=== PATIENT | female | born 1975 | race African-American/Black ===

== ENCOUNTER 2017-09-02 22:35 | Emergency (ER) | payer OTHER | END 2017-09-03 01:43 | disposition home or self-care (01) | LOC: ER 22:35 | DX: S00.83XA Contusion of other part of head, initial encounter (principal); M79.1 Myalgia; I10 Essential (primary) hypertension; Z98.51 Tubal ligation status; Z88.1 Allergy status to other antibiotic agents; Z88.2 Allergy status to sulfonamides; Z88.0 Allergy status to penicillin; V43.52XA Car driver injured in collision with other type car in traffic accident, initial encounter; Y93.I9 Activity, other involving external motion; Y92.410 Unspecified street and highway as the place of occurrence of the external cause; Y99.8 Other external cause status | CPT/HCPCS: 70450; 99284-25 ==

== ENCOUNTER → 2018-04-24 | Outpatient (CLI) | payer BC ==
[2017-09-02 22:45] VITALS: BP 129/85
[~2018-04-24] MED LIST: ONDA4TAB7 PO
--- NOTE | 2018-04-25 15:54 | RAD ---
Nonvascular right lower extremity ultrasound History: Masses of right lower extremity Comparison: None. Findings: Multiple grayscale and color images of the right posterior lower thigh region and right upper calf region are submitted at sites of palpable concern. Both areas correspond with thrombosed superficial veins. There is also nonspecific edema also in these regions. Impression: 1. Both areas of palpable concern correspond with superficial thrombophlebitis. Electronically signed by: Jad Dunaway MD (04/25/2018 3:51 PM) [id number]
== END | disposition home or self-care (01) ==
LOC: RAD 16:06
PROVIDERS: ATTEND Nurse Practitioner Gerontology
DX: I80.01 Phlebitis and thrombophlebitis of superficial vessels of right lower extremity (principal); I10 Essential (primary) hypertension; R60.0 Localized edema; Z88.0 Allergy status to penicillin; Z88.1 Allergy status to other antibiotic agents; Z88.2 Allergy status to sulfonamides; Z88.8 Allergy status to other drugs, medicaments and biological substances
CPT/HCPCS: 76881

== ENCOUNTER 2018-09-03 13:28 | Emergency (ER) | payer BC ==
[~2018-09-03] VITALS: Ht 177.8 cm; Wt 176.9 kg
[2018-09-03 14:04] VITALS: BP 152/81
--- NOTE | 2018-09-03 14:23 | PHYS DOC ---
Past Medical History Past Medical History: Hypertension Past Surgical History: Tubal ligation, Other Additional Past Surgical Histo: R foot Alcohol Use: None Drug Use: None Adult General Chief Complaint Chief Complaint: Neck Pain HPI HPI Patient is a 43-year-old female who presents with complaint of three-day history of right-sided neck and upper back pain. Patient states that she just woke up with the pain 3 days ago. She denies any recent injuries and has not been lifting anything heavy. Patient states that pain is worsened when she moves her neck. She rates pain as being moderate and states that she has no alleviating factors. Review of Systems Review of Systems Constitutional: Denies fever or chills [] Respiratory: Denies cough or shortness of breath [] Cardiovascular: No additional information not addressed in HPI [] Musculoskeletal: [place] of right-sided neck and upper back pain [] Integument: Denies rash or skin lesions [] Neurologic: Denies headache, focal weakness or sensory changes [] Current Medications Current Medications Current Medications Medications (Trade) Dose Ordered Sig/[facility] Start Time Stop Time Status Last Admin Dose Admin Dexamethasone Sodium Phosphate (Decadron) 10 mg 1X ONCE 09/03/18 14:30 09/03/18 14:31 DC 09/03/18 14:39 10 MG Ketorolac Tromethamine (Toradol Im) 60 mg 1X ONCE 09/03/18 14:30 09/03/18 14:31 DC 09/03/18 14:39 60 MG Allergies Allergies Allergies Coded Allergies Type Severity Reaction Last Updated Verified Penicillins Allergy Unknown 04/16/15 No sulfamethoxazole Allergy Unknown 04/16/15 No trimethoprim Allergy Unknown 04/16/15 No Physical Exam Physical Exam Constitutional: Well developed, well nourished, no acute distress, non-toxic appearance. [] Neck: Decreased range of motion, with tenderness to palpation in the right sided suboccipital and cervical strap musculature. There is palpable spasm noted within these muscles. [] Cardiovascular: Regular rate and rhythm, no murmur [] Lungs & Thorax: Bilateral breath sounds clear to auscultation [] Skin: Warm, dry, no erythema, no rash. [] Back: There is tenderness to palpation with palpable spasm noted in the right sided trapezius and levator scapula. [] Neurologic: Alert and oriented X 3, no focal deficits noted. [] Current Patient Data Vital Signs Vital Signs Date Time Temp Pulse Resp B/P (MAP) Pulse Ox O2 Delivery O2 Flow Rate FiO2 09/03/18 14:04 97.8 82 18 152/81 (104) 98 Room Air 97.8 EKG EKG [] Radiology/Procedures Radiology/Procedures [] Course & Med Decision Making Course & Med Decision Making Pertinent Labs and Imaging studies reviewed. (See chart for details) [] Dragon Disclaimer Dragon Disclaimer This electronic medical record was generated, in whole or in part, using a voice recognition dictation system. Departure Departure Impression: Primary Impression: Torticollis, acute Disposition: HOME, SELF-CARE Condition: STABLE Referrals: CARMELA STEVE APRN (PCP) Patient Instructions: Torticollis, Acute Scripts Orphenadrine Citrate (ORPHENADRINE CITRATE) 100 Mg Tablet.er 1 TAB PO BID PRN for MUSCLE SPASMS, #14 TAB Prov: GILMAR TORRES Jr. DO 09/03/18 Diclofenac Sodium (DICLOFENAC SODIUM) 50 Mg Tablet.dr 1 TAB PO BID PRN for MUSCLE PAIN, #20 TAB Prov: GILMAR TORRES Jr. DO 09/03/18 Tramadol Hcl (TRAMADOL HCL) 50 Mg Tablet 50 MG PO Q6HRS PRN for PAIN for 3 Days, #12 TAB Prov: GILMAR TORRES Jr. DO 09/03/18 GILMAR TORRES Jr. DO Sep 03, 2018 14:23
[2018-09-03] MEDS ORDERED: DEXAMETHASONE SOD PHOS 20 MG/5 ML VIAL. IM ONE (14:30)
[2018-09-03] MEDS ORDERED: KETOROLAC 60 MG/2 ML VIAL. IM ONE (14:30)
[2018-09-03] MEDS ORDERED: TRAM50TA PO (14:48)
[2018-09-03] MEDS ORDERED: DICL50TA4 PO (14:48)
[2018-09-03] MEDS ORDERED: ORPH100T PO (14:48)
== END 2018-09-03 14:54 | disposition home or self-care (01) ==
LOC: ER 13:28
DX: M43.6 Torticollis (principal); M54.6 Pain in thoracic spine; I10 Essential (primary) hypertension; Z98.51 Tubal ligation status; Z88.0 Allergy status to penicillin; Z88.2 Allergy status to sulfonamides; Z88.1 Allergy status to other antibiotic agents
CPT/HCPCS: 96372; 99283; J1100; J1885

== ENCOUNTER 2018-10-23 15:22 | Emergency (ER) | payer BC ==
[~2018-10-23] VITALS: Ht 177.8 cm; Wt 181.4 kg
[~2018-10-23 15:22] MED LIST changes: +DICL50TA4 PO; +ORPH100T PO; +TRAM50TA PO
[2018-10-23] MEDS ORDERED: KETOROLAC 30 MG/ML VIAL. IV ONE (16:00)
[2018-10-23 16:33] LABS: BASO % 1 % (0-3); EOS # 0.2 x10^3/uL (0.0-0.7); EOS % 4 % (0-3); HEMOGLOBIN 11.4 g/dL (12.0-15.5); LYMPH # 0.9 x10^3/uL (1.0-4.8); LYMPH % 18 % (24-48); MEAN CORPUSCULAR HEMOGLOBIN 23 pg (25-35); MEAN CORPUSCULAR HGB CONC 32 g/dL (31-37); MEAN CORPUSCULAR VOLUME 73 fL (79-100); MONO # 0.7 x10^3/uL (0.0-1.1); MONO % 15 % (0-9); NEUT # 3.1 x10^3uL (1.8-7.7); NEUT % 63 % (31-73); PLATELET COUNT 327 x10^3/uL (140-400); RED BLOOD COUNT 4.94 x10^6/uL (3.50-5.40); RED CELL DISTRIBUTION WIDTH 17.4 % (11.5-14.5); WHITE BLOOD COUNT 4.9 x10^3/uL (4.0-11.0)
[2018-10-23 16:41] LABS: CALCIUM 9.1 mg/dL (8.5-10.1); CREATININE 0.9 mg/dL (0.6-1.0); GFR 83.1; POTASSIUM 4.2 mmol/L (3.5-5.1)
--- NOTE | 2018-10-23 16:44 | RAD ---
EXAM: CHEST 1 VIEW History: Chest pain, cough COMPARISON: None available. TECHNIQUE: Single portable radiograph of the chest FINDINGS: Mild cardiomegaly. There is mild prominent appearing bilateral interstitial lung markings. The costophrenic sulci are clear and well demarcated. IMPRESSION: Mild prominent bilateral interstitial lung markings likely mild congestive changes. Electronically signed by: Ceferino He MD (10/23/2018 4:42 PM) [id number]
[2018-10-23 16:47] LABS: ALBUMIN 3.6 g/dL (3.4-5.0); ALBUMIN/GLOBULIN RATIO 0.9 (1.0-1.7); TOTAL BILIRUBIN 0.4 mg/dL (0.2-1.0); TOTAL PROTEIN 7.8 g/dL (6.4-8.2)
[2018-10-23 17:00] VITALS: BP 127/77
[2018-10-23] MEDS ORDERED: LOSA25TA54 PO (17:05)
[2018-10-23] MEDS ORDERED: CYCL5TAB PO (17:05)
--- NOTE | 2018-10-23 17:06 | PHYS DOC ---
Past Medical History Past Medical History: Hypertension, Hypothyroid Past Surgical History: Tubal ligation, Other Additional Past Surgical Histo: R foot Alcohol Use: None Drug Use: None Adult General Chief Complaint Chief Complaint: MULTIPLE COMPLAINTS [facility] HPI Patient is a 43 year old female who presents with a headache and high blood pressure. She also states that her right shoulder hurts. She denies injury. She has not been taking blood pressure medication. She states that she left work bec ause of the headache and will need a work note. Review of Systems Review of Systems Constitutional: Denies fever or chills [ Respiratory: Denies cough or shortness of breath [] Cardiovascular: No additional information not addressed in HPI [] GI: Denies abdominal pain, nausea, vomiting, bloody stools or diarrhea [] : Denies dysuria or hematuria [] Musculoskeletal: See HPI Integument: Denies rash or skin lesions [] Neurologic: See HPI Endocrine: Denies polyuria or polydipsia [] All other systems were reviewed and found to be within normal limits, except as documented in this note. Current Medications Current Medications Current Medications Medications (Trade) Dose Ordered Sig/Anni Start Time Stop Time Status Last Admin Dose Admin Ketorolac Tromethamine (Toradol 30mg Vial) 30 mg 1X ONCE 10/23/18 16:00 10/23/18 16:01 DC 10/23/18 16:25 30 MG Allergies Allergies Allergies Coded Allergies Type Severity Reaction Last Updated Verified Penicillins Allergy Unknown 04/16/15 No sulfamethoxazole Allergy Unknown 04/16/15 No trimethoprim Allergy Unknown 04/16/15 No Physical Exam Physical Exam Constitutional: Well developed, well nourished, no acute distress, non-toxic appearance. [] HENT: Normocephalic, atraumatic, bilateral external ears normal, oropharynx moist, no oral exudates, nose normal. [] Eyes: PERRLA, EOMI, conjunctiva normal, no discharge. [] Neck: Normal range of motion, no tenderness, supple, no stridor. [] Cardiovascular:Heart rate regular rhythm, no murmur [] Lungs & Thorax: Bilateral breath sounds clear to auscultation [] Abdomen: Bowel sounds normal, soft, no tenderness, no masses, no pulsatile masses. [] Skin: Warm, dry, no erythema, no rash. [] Back: No tenderness, no CVA tenderness. [] Extremities: right shoulder tenderness, no cyanosis, no clubbing, ROM intact, no edema. [] Neurologic: Alert and oriented X 3, normal motor function, normal sensory function, no focal deficits noted, cranial nerves II-XII are grossly intact. [] Psychologic: Affect normal, judgement normal, mood normal. [] Current Patient Data Vital Signs Lab Values Laboratory Tests Test 10/23/18 15:53 10/23/18 16:23 POC Urine HCG, Qualitative Hcg negative (Negative) White Blood Count 4.9 x10^3/uL (4.0-11.0) Red Blood Count 4.94 x10^6/uL (3.50-5.40) Hemoglobin 11.4 g/dL (12.0-15.5) L Hematocrit 36.0 % (36.0-47.0) Mean Corpuscular Volume 73 fL (79-100) L Mean Corpuscular Hemoglobin 23 pg (25-35) L Mean Corpuscular Hemoglobin Concent 32 g/dL (31-37) Red Cell Distribution Width 17.4 % (11.5-14.5) H Platelet Count 327 x10^3/uL (140-400) Neutrophils (%) (Auto) 63 % (31-73) Lymphocytes (%) (Auto) 18 % (24-48) L Monocytes (%) (Auto) 15 % (0-9) H Eosinophils (%) (Auto) 4 % (0-3) H Basophils (%) (Auto) 1 % (0-3) Neutrophils # (Auto) 3.1 x10^3uL (1.8-7.7) Lymphocytes # (Auto) 0.9 x10^3/uL (1.0-4.8) L Monocytes # (Auto) 0.7 x10^3/uL (0.0-1.1) Eosinophils # (Auto) 0.2 x10^3/uL (0.0-0.7) Basophils # (Auto) 0.0 x10^3/uL (0.0-0.2) Sodium Level 140 mmol/L (136-145) Potassium Level 4.2 mmol/L (3.5-5.1) Chloride Level 100 mmol/L (98-107) Carbon Dioxide Level 29 mmol/L (21-32) Anion Gap 11 (6-14) Blood Urea Nitrogen 10 mg/dL (7-20) Creatinine 0.9 mg/dL (0.6-1.0) Estimated GFR (Cockcroft-Gault) 83.1 BUN/Creatinine Ratio 11 (6-20) Glucose Level 95 mg/dL (70-99) Calcium Level 9.1 mg/dL (8.5-10.1) Total Bilirubin 0.4 mg/dL (0.2-1.0) Aspartate Amino Transferase (AST) 18 U/L (15-37) Alanine Aminotransferase (ALT) 21 U/L (14-59) Alkaline Phosphatase 89 U/L (46-116) Total Protein 7.8 g/dL (6.4-8.2) Albumin 3.6 g/dL (3.4-5.0) Albumin/Globulin Ratio 0.9 (1.0-1.7) L Laboratory Tests 10/23/18 16:23 Laboratory Tests 10/23/18 16:23 EKG EKG [] Radiology/Procedures Radiology/Procedures [] Course & Med Decision Making Course & Med Decision Making Pertinent Labs and Imaging studies reviewed. (See chart for details) [] Dragon Disclaimer Dragon Disclaimer This electronic medical record was generated, in whole or in part, using a voice recognition dictation system. Departure Departure Impression: Primary Impression: Hypertension Additional Impressions: Myalgia Headache Disposition: 01 HOME, SELF-CARE Condition: STABLE Referrals: CARMELA STEVE APRN (PCP) Patient Instructions: General Headache Without Cause, Hypertension, Myalgia, Adult Additional Instructions: Take the medication as directed. Follow-up with your primary care provider at your next scheduled appointment or sooner if needed. Verify your blood pressure medication dosage before you start this medication. You may need to take half of a tablet. If worsening return to the emergency department. Scripts Losartan Potassium (LOSARTAN POTASSIUM ) 25 Mg Tablet 25 MG PO DAILY for HYPERTENSION, #30 TAB Prov: TYE ROSE APRN 10/23/18 Cyclobenzaprine Hcl (CYCLOBENZAPRINE HCL) 5 Mg Tablet 1 TAB PO QHS for myalgia, #30 TAB Prov: TYE ROSE APRN 10/23/18 Problem Qualifiers TYE ROSE APRN Oct 23, 2018 17:06
== END 2018-10-23 17:24 | disposition home or self-care (01) ==
LOC: ER 15:22
DX: R51 Headache (principal); I10 Essential (primary) hypertension; M79.10 Myalgia, unspecified site; E03.9 Hypothyroidism, unspecified; Z88.0 Allergy status to penicillin; Z88.1 Allergy status to other antibiotic agents; Z88.2 Allergy status to sulfonamides
CPT/HCPCS: 36415; 71045; 80053; 81025; 85025; 96374; 99284; J1885

== ENCOUNTER 2018-11-09 11:13 | Emergency (ER) | payer BC, OTHER ==
[~2018-11-09] VITALS: Ht 177.8 cm; Wt 172.4 kg
[~2018-11-09 11:13] MED LIST changes: +CYCL5TAB PO; +LOSA25TA54 PO
[2018-11-09 11:21] VITALS: BP 145/94
[2018-11-09] MEDS ORDERED: NAPROXEN 500 MG TABLET PO STA (11:44)
[2018-11-09] MEDS ORDERED: CYCLOBENZAPRINE 10 MG TABLET. PO ONE (11:45)
[2018-11-09] MEDS ORDERED: HYDROcodone/APAP 5/325MG 1 TAB TABLET PO ONE (11:45)
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
[2018-11-09] MEDS ORDERED: HYDR-3164 PO (13:03)
[2018-11-09] MEDS ORDERED: NAPR-514 PO (13:03)
[2018-11-09] MEDS ORDERED: CYCL10TA2 PO (13:03)
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
== END 2018-11-09 13:23 | disposition home or self-care (01) ==
LOC: ER 11:13
DX: S13.8XXA Sprain of joints and ligaments of other parts of neck, initial encounter (principal); M25.511 Pain in right shoulder; M54.5 Low back pain; I10 Essential (primary) hypertension; E03.9 Hypothyroidism, unspecified; Z98.51 Tubal ligation status; Z88.0 Allergy status to penicillin; Z88.1 Allergy status to other antibiotic agents; Z88.2 Allergy status to sulfonamides; V43.52XA Car driver injured in collision with other type car in traffic accident, initial encounter; Y93.89 Activity, other specified; Y92.410 Unspecified street and highway as the place of occurrence of the external cause; Y99.8 Other external cause status
CPT/HCPCS: 72040; 72100; 73030; 99284

== ENCOUNTER → 2018-12-04 | Outpatient (CLI) | payer OTHER, BC ==
[2018-11-09 11:21] VITALS: BP 145/94
[~2018-12-04] MED LIST changes: +CYCL10TA2 PO; +HYDR-3164 PO; +NAPR-514 PO
--- NOTE | 2018-12-05 10:52 | RAD ---
3 view study of both knees Clinical indications: Bilateral knee pain. Left knee: No acute fracture or dislocation or lytic process is evident. There is moderate joint space narrowing and mild spurring of the medial tibiofemoral joint compartment. There is mild joint space narrowing and spurring of the lateral tibiofemoral joint compartment. There is mild degenerative spurring without joint space narrowing of the patellofemoral joint compartment. The patella is normally aligned. No significant knee joint effusion is seen. Right knee: There is severe joint space narrowing and mild spurring of the medial tibiofemoral joint compartment. There is mild joint space narrowing and moderate spurring of the lateral tibiofemoral joint compartment. A fabella is seen. However, there is a radiopaque loose body seen anteriorly within the tibial femoral joint compartment measuring 7 mm. There is mild lateral subluxation of the tibia with respect to the femur. The patella is normally aligned. Mild degenerative spurring of the patellar femoral joint compartment is seen. No acute fracture or lytic process is seen. IMPRESSION: Primary degenerative osteoarthritis of all 3 compartments of both knees as discussed above. Electronically signed by: Nikita Howard MD (12/05/2018 10:49 AM) [facility]
== END | disposition home or self-care (01) ==
LOC: RAD 16:27
PROVIDERS: ATTEND Nurse Practitioner Gerontology
DX: S83.141A Lateral subluxation of proximal end of tibia, right knee, initial encounter (principal); M17.0 Bilateral primary osteoarthritis of knee; X58.XXXA Exposure to other specified factors, initial encounter; Y93.89 Activity, other specified; Y92.89 Other specified places as the place of occurrence of the external cause; Y99.8 Other external cause status
CPT/HCPCS: 73562

== ENCOUNTER → 2020-01-14 | Outpatient (CLI) | payer BC ==
[2019-05-14 16:34] VITALS: BP 170/82
[~2020-01-14] MED LIST changes: +DICL50TA2 PO; +GABA600T7 PO; +METH4TAB2 PO
[2020-01-14 12:56] LABS: HEMATOCRIT 36.5 % (36.0-47.0); HEMOGLOBIN 11.8 g/dL (12.0-15.5); RED BLOOD COUNT 4.86 x10^6/uL (3.50-5.40); RED CELL DISTRIBUTION WIDTH 18.5 % (11.5-14.5); WHITE BLOOD COUNT 7.5 x10^3/uL (4.0-11.0)
[2020-01-14 13:15] LABS: ALBUMIN 3.1 g/dL (3.4-5.0); ALBUMIN/GLOBULIN RATIO 0.7 (1.0-1.7); CALCIUM 8.5 mg/dL (8.5-10.1); CREATININE 0.9 mg/dL (0.6-1.0); GFR 82.7; POTASSIUM 4.2 mmol/L (3.5-5.1); TOTAL BILIRUBIN 0.7 mg/dL (0.2-1.0); TOTAL PROTEIN 7.4 g/dL (6.4-8.2)
[2020-01-14 13:24] LABS: FREE T4 1.31 ng/dL (0.76-1.46); THYROID STIM HORMONE (TSH) 2.263 uIU/mL (0.358-3.74)
[2020-01-15 01:08] LABS: HEMOGLOBIN A1C 5.8 % (4.8-5.6)
== END | disposition home or self-care (01) ==
LOC: LAB 12:38
PROVIDERS: ATTEND Family Medicine
DX: E74.39 Other disorders of intestinal carbohydrate absorption (principal); E03.9 Hypothyroidism, unspecified; D50.9 Iron deficiency anemia, unspecified
CPT/HCPCS: 36415; 80053; 83036; 84439; 84443; 85027

== ENCOUNTER → 2021-05-26 | Outpatient (CLI) | payer BC ==
[2019-05-14 16:34] VITALS: BP 170/82
[2021-05-26 15:44] LABS: ALBUMIN/GLOBULIN RATIO 0.7 (1.0-1.7); CALCIUM 8.6 mg/dL (8.5-10.1); CREATININE 0.9 mg/dL (0.6-1.0); FREE T4 1.22 ng/dL (0.76-1.46); GFR 81.9; HEMATOCRIT 36.8 % (36.0-47.0); HEMOGLOBIN 11.9 g/dL (12.0-15.5); RED BLOOD COUNT 4.81 x10^6/uL (3.50-5.40); RED CELL DISTRIBUTION WIDTH 16.1 % (11.5-14.5); THYROID STIM HORMONE (TSH) 3.014 uIU/mL (0.358-3.74); TOTAL BILIRUBIN 0.4 mg/dL (0.2-1.0); TOTAL PROTEIN 7.6 g/dL (6.4-8.2); WHITE BLOOD COUNT 7.3 x10^3/uL (4.0-11.0)
[2021-05-27 02:27] LABS: HEMOGLOBIN A1C 5.5 % (4.8-5.6)
== END ==
LOC: LAB 14:34
PROVIDERS: ATTEND Family Medicine
DX: E74.39 Other disorders of intestinal carbohydrate absorption (principal); D50.9 Iron deficiency anemia, unspecified; E55.9 Vitamin D deficiency, unspecified; E03.9 Hypothyroidism, unspecified
CPT/HCPCS: 36415; 80053; 82306; 82728; 83036; 84439; 84443; 85027

== ENCOUNTER → 2021-06-29 | Outpatient (CLI) | payer BC ==
[2019-05-14 16:34] VITALS: BP 170/82
[~2021-06-29] MED LIST changes: +CYCL10TA19 PO; -CYCL10TA2 PO
--- NOTE | 2021-06-30 04:16 | RAD ---
XR EXAM OF ANKLE_RIGHT 3VIEWS 06/29/2021 3:31 PM INDICATION: Acute right ankle pain COMPARISON: None available. TECHNIQUE: 3 views the right ankle are provided. FINDINGS/ IMPRESSION: There is no acute fracture or dislocation. Partially threaded screw transfixes the calcaneotalar join t. Joint spaces are maintained. Bone mineralization is within normal limits. Vascular calcifications present. Lateral soft tissue swelling noted. There is no soft tissue gas or osseous erosion. No radio paque foreign body. Electronically signed by: Anuja Stephenson MD (06/30/2021 4:14 AM) [facility]
== END ==
LOC: RAD 15:16
PROVIDERS: ATTEND Family Medicine
DX: M79.89 Other specified soft tissue disorders (principal); M25.871 Other specified joint disorders, right ankle and foot; Z98.890 Other specified postprocedural states
CPT/HCPCS: 73610

== ENCOUNTER → 2021-11-30 | Outpatient (CLI) | payer BC ==
[2019-05-14 16:34] VITALS: BP 170/82
[2021-11-30 10:43] LABS: BASO # 0.1 x10^3/uL (0.0-0.2); BASO % 1 % (0-3); EOS # 0.3 x10^3/uL (0.0-0.7); EOS % 5 % (0-3); HEMATOCRIT 40.5 % (36.0-47.0); LYMPH # 1.5 x10^3/uL (1.0-4.8); LYMPH % 23 % (24-48); MEAN CORPUSCULAR HEMOGLOBIN 25 pg (25-35); MEAN CORPUSCULAR HGB CONC 32 g/dL (31-37); MEAN CORPUSCULAR VOLUME 77 fL (79-100); MONO # 0.5 x10^3/uL (0.0-1.1); MONO % 7 % (0-9); NEUT # 4.1 x10^3/uL (1.8-7.7); NEUT % 64 % (31-73); PLATELET COUNT 358 x10^3/uL (140-400); RED BLOOD COUNT 5.26 x10^6/uL (3.50-5.40); RED CELL DISTRIBUTION WIDTH 15.1 % (11.5-14.5); WHITE BLOOD COUNT 6.5 x10^3/uL (4.0-11.0)
[2021-11-30 11:24] LABS: THYROID STIM HORMONE (TSH) 2.329 uIU/mL (0.358-3.74)
[2021-11-30 11:39] LABS: ALBUMIN 3.4 g/dL (3.4-5.0); ALBUMIN/GLOBULIN RATIO 0.7 (1.0-1.7); CALCIUM 9.3 mg/dL (8.5-10.1); CREATININE 0.9 mg/dL (0.6-1.0); GFR 81.9; TOTAL BILIRUBIN 0.9 mg/dL (0.2-1.0); TOTAL PROTEIN 8.2 g/dL (6.4-8.2)
[2021-11-30 22:40] LABS: FREE T4 1.3 ng/dL (0.76-1.46)
[2021-12-01 04:59] LABS: HEMOGLOBIN A1C 5.7 % (4.8-5.6)
== END ==
LOC: LAB 10:07
PROVIDERS: ATTEND Family Medicine
DX: E11.9 Type 2 diabetes mellitus without complications (principal); E50.9 Vitamin A deficiency, unspecified; E03.9 Hypothyroidism, unspecified; E55.9 Vitamin D deficiency, unspecified; M25.571 Pain in right ankle and joints of right foot
CPT/HCPCS: 36415; 80053; 82306; 82728; 83036; 84439; 84443; 84550; 85025